=== PATIENT | female | born 1935 | race Caucasian/White ===

== ENCOUNTER 2018-02-19 06:13 | Day surgery (SDC) | payer OTHER, MEDICAID ==
[~2018-02-19] VITALS: Ht 142.2 cm; Wt 64.0 kg
[~2018-02-19 06:13] MED LIST: SODIUM CHLORIDE 0.9% 1,000 ML IV ONE
[2018-02-19] MEDS ORDERED: SODIUM CHLORIDE 0.9% 1,000 ML IV ONE (07:00)
[2018-02-19 08:03] LABS: GLUCOMETER DEV NAME(LOC) SDS 5; GLUCOSE,POINT OF CARE 147 MG/DL (70-110)
[2018-02-19] MEDS ORDERED: FentaNYL CITRATE-PF 100 MCG/2 ML VIAL ONE (08:15)
[2018-02-19] MEDS ORDERED: MIDAZOLAM HCL 2 MG/2 ML VIAL ONE (08:15)
[2018-02-19] MEDS ORDERED: MethylPREDNISolone SOD SUCC 125 MG/2 ML VIAL IVP ONE (08:30)
[2018-02-19] MEDS ORDERED: MethylPREDNISolone SOD SUCC 125 MG/2 ML VIAL ONE (08:43)
[2018-02-19] MEDS ORDERED: LIDOCAINE HCL 2% 30 ML JELLY ONE (14:44)
[2018-02-19] MEDS ORDERED: LIDOCAINE HCL 4% 50 ML SOLUTION ONE (14:44)
[2018-02-19] MEDS ORDERED: ALBUTEROL SULFATE 2.5 MG/0.5 ML NEB SOLUTION NEB ONE (14:44)
[2018-02-19] MEDS ORDERED: BENZOCAINE 20% 50 MCG/SPRAY 57 GM ONE (14:44)
[2018-02-19] MEDS ORDERED: OXYGEN THERAPY IH SCH (20:00)
== END 2018-02-19 10:00 | disposition home or self-care (01) ==
LOC: EDSEX 06:13 → SURGERY 06:13
PROVIDERS: ATTEND Internal Medicine Critical Care Medicine
DX: J38.4 Edema of larynx (principal); B37.0 Candidal stomatitis; J18.9 Pneumonia, unspecified organism; I25.2 Old myocardial infarction; D64.9 Anemia, unspecified; Z99.2 Dependence on renal dialysis; Z79.4 Long term (current) use of insulin; Z95.5 Presence of coronary angioplasty implant and graft; Z86.73 Personal history of transient ischemic attack (TIA), and cerebral infarction without residual deficits
CPT/HCPCS: 31623; 31624; 71045; 82962; 87015; 87070; 87205; 87206; 87220; 88108; 88184; 88185; 88312; J2250; J2930; J3010; J7030